=== PATIENT | female | born 2000 | race Two or more races ===

== ENCOUNTER 2022-01-19 11:06 | Outpatient (CLI) | payer OTHER | END 2022-01-19 12:00 | disposition home or self-care (01) | LOC: PRENATAL 11:06 | PROVIDERS: ATTEND Obstetrics & Gynecology Maternal & Fetal Medicine | DX: O09.612 Supervision of young primigravida, second trimester (principal); O28.5 Abnormal chromosomal and genetic finding on antenatal screening of mother ==

== ENCOUNTER 2022-02-01 14:47 | Outpatient (CLI) | payer OTHER | END 2022-02-01 15:48 | disposition home or self-care (01) | LOC: PRENATAL 14:47 | PROVIDERS: ATTEND Obstetrics & Gynecology Maternal & Fetal Medicine | DX: O35.1XX0 Maternal care for (suspected) chromosomal abnormality in fetus, not applicable or unspecified (principal); O35.3XX0 Maternal care for (suspected) damage to fetus from viral disease in mother, not applicable or unspecified; O02.81 Inappropriate change in quantitative human chorionic gonadotropin (hCG) in early pregnancy ==

== ENCOUNTER 2022-03-03 23:01 | Emergency (ER) | payer OTHER ==
[~2022-03-03] VITALS: Ht 172.7 cm; Wt 74.8 kg
[2022-03-03] MEDS ORDERED: PRENATABS FA T1 EACH PO (23:55)
[2022-03-04] MEDS ORDERED: ANTI-ITCH28 G1 TOP (02:05)
[2022-03-04] MEDS ORDERED: DIPHENHYDRAMINE25 M1 PO (02:05)
== END 2022-03-04 02:19 | disposition home or self-care (01) ==
LOC: ER 23:01
DX: O26.86 Pruritic urticarial papules and plaques of pregnancy (PUPPP) (principal); Z3A.20 20 weeks gestation of pregnancy

== ENCOUNTER → 2022-04-01 | Emergency (ER) | payer OTHER ==
[~2022-04-01] VITALS: Ht 172.7 cm; Wt 77.6 kg
[~2022-04-01] MED LIST: ANTI-ITCH28 G1 TOP; DIPHENHYDRAMINE25 M1 PO; PRENATABS FA T1 EACH PO; PRENATABS RX T1 EACH
== END | disposition home or self-care (01) ==
LOC: ER 01:32
DX: O26.893 Other specified pregnancy related conditions, third trimester (principal); Z3A.28 28 weeks gestation of pregnancy; R51.9 Headache, unspecified; Z20.822 Contact with and (suspected) exposure to COVID-19

== ENCOUNTER 2022-04-26 16:48 | Emergency (ER) | payer OTHER ==
[~2022-04-26] VITALS: Ht 172.7 cm; Wt 78.0 kg
[2022-04-26] MEDS ORDERED: ROBITUSSIN COU237 M2 PO (18:04)
== END 2022-04-26 18:09 | disposition home or self-care (01) ==
LOC: ER 16:48
DX: O98.513 Other viral diseases complicating pregnancy, third trimester (principal); U07.1 COVID-19; Z3A.33 33 weeks gestation of pregnancy

== ENCOUNTER 2022-06-03 13:49 | Inpatient (IN) | payer OTHER ==
[~2022-06-03] VITALS: Ht 152.4 cm; Wt 3.6 kg
[~2022-06-03 13:49] MED LIST changes: +ROBITUSSIN COU237 M2 PO
== END 2022-06-07 14:47 | disposition home or self-care (01) | DRG 788 ==
LOC: LDR 13:49 → OB/GYN 06-04 08:44
PROVIDERS: ADMIT Obstetrics & Gynecology Obstetrics; ATTEND Obstetrics & Gynecology Obstetrics
PROC: 4A1HXCZ Monitoring of Products of Conception, Cardiac Rate, External Approach (ICD-10-PCS; 2022-06-03)
PROC: 10D00Z1 Extraction of Products of Conception, Low, Open Approach (ICD-10-PCS; principal; 2022-06-04 04:30)
DX: O82 Encounter for cesarean delivery without indication (principal); O36.8130 Decreased fetal movements, third trimester, not applicable or unspecified; Z3A.39 39 weeks gestation of pregnancy; Z37.0 Single live birth; Z20.822 Contact with and (suspected) exposure to COVID-19

== ENCOUNTER 2023-04-12 09:09 | Emergency (ER) | payer OTHER ==
[~2023-04-12] VITALS: Ht 170.2 cm; Wt 65.8 kg
== END 2023-04-12 11:35 | disposition home or self-care (01) ==
LOC: ER 09:09
DX: B34.9 Viral infection, unspecified (principal); U07.1 COVID-19; Z20.822 Contact with and (suspected) exposure to COVID-19

== ENCOUNTER 2023-09-12 16:38 | Emergency (ER) | payer OTHER ==
[~2023-09-12] VITALS: Ht 172.7 cm; Wt 61.2 kg
== END 2023-09-12 21:53 | disposition home or self-care (01) ==
LOC: ER 16:38
DX: M94.0 Chondrocostal junction syndrome [Tietze] (principal)

== ENCOUNTER 2025-06-08 21:50 | Emergency (ER) | payer OTHER ==
[~2025-06-08] VITALS: Ht 172.7 cm; Wt 61.2 kg
[2025-06-08 22:41] VITALS: BP 102/65; O2SAT 99
[2025-06-09] MEDS ORDERED: DOLOGESIC-DF 51 EACH PO (02:51)
[2025-06-09] MEDS ORDERED: ORASEP SPRAY30 ML MM (02:54)
== END 2025-06-09 02:58 ==
LOC: ER 21:50
DX: Z20.822 Contact with and (suspected) exposure to COVID-19 (principal)